=== PATIENT | female | born 1945 | race Caucasian/White ===

== ENCOUNTER 2025-04-20 10:37 | Outpatient (CLI) | payer MEDICARE, BC, SELFPAY | END 2025-04-20 10:38 | disposition home or self-care (01) | LOC: INJ CL 10:40 | PROVIDERS: PCP Family Medicine; Visit Provider Family Medicine | DX: M54.16 Radiculopathy, lumbar region (principal); M48.062 Spinal stenosis, lumbar region with neurogenic claudication | CPT/HCPCS: 62323; J0702; Q9966 ==